=== PATIENT | male | born 1945 | race Caucasian/White ===

== ENCOUNTER → 2016-07-02 | Day surgery (SDC) | payer MEDICARE ==
[~2016-07-02] VITALS: Ht 182.9 cm; Wt 90.7 kg
[~2016-07-02] MED LIST: ACET325T9 PO; ALBUTEROL SULFATE 2.5 MG/3 ML NEBU. NEB ONE; ALPR0.254 PO; AMLO10TA2 PO; BUPIVAC MPF-EPI 0.5%-1:200000 30 ML VIAL. ONE; CARV25TA2 PO; CEFAZOLIN 2GM PREMIX 50 ML IV PRN; DEXAMETHASONE SOD PHOS 20 MG/5 ML VIAL. ONE; DOCU100C PO; EPHEDRINE PF IN SALINE 50 MG/5 ML DISP.SYRIN. IV ONE; FENTANYL PF 100 MCG/2 ML VIAL. IV PRN; FENTANYL PF 100 MCG/2 ML VIAL. ONE; GLUCAGON,HUMAN RECOMBINANT 1 MG/ML VIAL. ONE; GLYCOPYRROLATE 1 MG/5 ML VIAL. ONE; HYDROMORPHONE 2 MG/ML VIAL. IV PRN; IOHEXOL 300 MG/ML 50 ML VIAL. ONE; IRBE300T3 PO; IV RINGERS,LACTATED 1000ML 1,000 ML IV SCH; LIDOCAINE 1% 1 ML SYRINGE. ID PRN; LIDOCAINE 2% 100 MG/5 ML DISP.SYRIN. ONE; MORPHINE SULFATE 2 MG/ML DISP.SYRIN. IV PRN; NEOSTIGMINE METHYLSULFATE 5 MG/5 ML SYRINGE. ONE; ONDA4TAB10 SL; ONDANSETRON PF 4 MG/2 ML VIAL. IV PRN; ONDANSETRON PF 4 MG/2 ML VIAL. ONE; OXYC-323 PO; OXYCODONE/APAP 5/325 TABLET. PO ONE; PANT40TA5 PO; PHENYLEPHRINE in 0.9% NACL PF 1 MG/10 ML DISP.SYRIN. IV ONE; PROCHLORPERAZINE 10 MG/2 ML VIAL. IV PRN; PROPOFOL 20 ML IV ONE; RANI150T6 PO; ROCURONIUM 50 MG/5 ML VIAL. ONE; SEVOFLURANE 61 TO 120 MINUTES. IH ONE; SURGICEL HEMOSTAT 4X8 EACH. ONE; TRAM50TA PO
[2016-07-02 06:47] LABS: BASO % 1 % (0-3); EOS % 2 % (0-3); HEMATOCRIT 40.4 % (39.0-53.0); HEMOGLOBIN 13.2 g/dL (13.0-17.5); LYMPH # 4.1 x10^3/uL (1.0-4.8); LYMPH % 54 % (24-48); MEAN CORPUSCULAR HEMOGLOBIN 30 pg (25-35); MEAN CORPUSCULAR HGB CONC 33 g/dL (31-37); MEAN CORPUSCULAR VOLUME 92 fL (79-100); MONO % 5 % (0-9); NEUT % 38 % (31-73); PLATELET COUNT 152 x10^3/uL (140-400); RED BLOOD COUNT 4.41 x10^6/uL (4.30-5.70); RED CELL DISTRIBUTION WIDTH 15.2 % (11.5-14.5); WHITE BLOOD COUNT 7.6 x10^3/uL (4.0-11.0)
[2016-07-02 07:00] LABS: CALCIUM 8.4 mg/dL (8.5-10.1); CREATININE 1.1 mg/dL (0.7-1.3); GFR 66.2; POTASSIUM 3.9 mmol/L (3.5-5.1)
[2016-07-02 07:04] LABS: ALBUMIN 3.5 g/dL (3.4-5.0); TOTAL BILIRUBIN 0.6 mg/dL (0.2-1.0)
--- NOTE | 2016-07-02 08:35 | RAD ---
EXAM: Intraoperative cholangiogram. HISTORY: Intraoperative cholangiogram. COMPARISON: None. FINDINGS: 3 fluoroscopic images are obtained intraoperatively during injection of the cystic duct remnant after cholecystectomy. There are no filling defects to suggest retained stones. The common duct is not dilated. Fluoroscopy time 13 seconds. IMPRESSION: No evidence of retained stones.
[2016-07-02] MEDS: FENTANYL PF 100 MCG/2 ML VIAL. IV PRN ×4 (09:00→09:40)
--- NOTE | 2016-07-02 09:03 | PDOC ---
BRIEF OPERATIVE NOTE Date: Jul 02, 2016 Pre-Op Diagnosis biliary dyskinesia Post-Op Diagnosis same Procedure Performed l/s cholecystectomy with cholangiograms Surgeon Gabriel Program Services Assistant Jud BOWDEN Anesthesia Type: General Blood Loss 5cc IV Fluid 1000cc Specimens Obtained GB Findings supple GB, some tiny stones/debris in the cystic duct, normal grams Complications none Additional Remarks Wk # [id number] PAVEL LARSON MD Jul 02, 2016 09:03
--- NOTE | 2016-07-02 09:04 | DISCH ---
DISCHARGE INSTRUCTIONS Condition on Discharge Condition on Discharge: Stable Activity After Discharge Activity Instructions for Disc: Activity as tolerated, Avoid exertion Driving Instructions after Dis: Do not drive (3-4 days) Diet after Discharge Diet after Discharge: Regular Wound Incision Care Wound/Incision Care: Ice to area for comfort Other wound/incision instructi: may shower Saturday Follow-Up Follow up with: Gabriel in office PAVEL LARSON MD Jul 02, 2016 09:04
[2016-07-02 12:17] VITALS: BP 126/61
--- NOTE | 2016-07-02 13:35 | OP ---
DATE OF SURGERY: 07/02/2016 PREOPERATIVE DIAGNOSIS: Biliary dyskinesia. POSTOPERATIVE DIAGNOSIS: Biliary dyskinesia. PROCEDURE: Laparoscopic cholecystectomy with cholangiogram. SURGEON: Jacob Larson MD ANESTHESIA: General. SEISMIC ENGINEER: KAL Watson BLOOD LOSS: 5 mL. IV FLUIDS: 1000 mL. INDICATIONS: The patient is a 70-year-old with postprandial pain and nausea. He is brought for cholecystectomy. OPERATIVE FINDINGS: The liver was smooth and sharp. The gallbladder was supple. When we opened the cystic duct for cholangiograms, two small sand-like stones were removed. Cholangiograms were normal. Visual inspection of the remainder of the abdomen failed to reveal obvious abnormalities. DESCRIPTION OF PROCEDURE: The patient was brought to the operating suite, given a general endotracheal anesthetic, and the abdomen was prepped and draped in the usual sterile fashion. A supraumbilical incision was infiltrated with local anesthetic, sharply incised, and a 5 mm Visiport was used to gain access into the abdominal cavity, taking care to avoid injury to abdominal contents. Pneumoperitoneum was established. Camera was inserted and inspection was carried out with results as noted above. With the table in reverse Trendelenburg rolled to the left, the epigastric and midclavicular ports were placed under direct vision. The lateral port location was used for an "alligator" grasper placed under direct vision. The gallbladder was retracted superolaterally and omental adhesions were taken down carefully with blunt and cautery dissection, taking care to avoid injury to the adjacent bowel. The cystic duct and cystic artery were exposed. The cystic duct was clipped on the gallbladder side. When we opened the duct for cholangiograms, two small stones were freed from the duct. Cholangiograms were made. These were normal. In light of this, the catheter was removed. The cystic duct was clipped and divided, taking care to avoid injury or compromise of the common duct. An anterior and posterior branch of the cystic artery were isolated, clipped, and divided, and the gallbladder was freed from the bed with cautery dissection and placed in an EndoCatch bag. Good hemostasis was present with the intra-abdominal pressure at 6 cm of water. The gallbladder was delivered through the epigastric incision. Epigastric incision was closed with interrupted 0 Vicryl suture. Again, at 6 cm of water, no bleeding from the epigastric closure or from the midclavicular port site after its removal or from the "alligator" grasper site after its removal. Abdomen was decompressed. Camera was slowly removed. No bleeding was seen. Skin incisions were closed with subcuticular 4-0 Monocryl. Steri-Strips and sterile dressings were applied. The patient was awakened from his anesthetic and taken to the recovery room in satisfactory condition. JACOB LARSON MD DR: GILBERT/scot JOB#: [id number] / [id number] abram Asher Dr.
--- NOTE | 2016-07-03 15:36 | PATHOLOGY ---
PATHOLOGY REPORT * * * * * * * * FINAL DIAGNOSIS: Gallbladder, laparoscopic cholecystectomy: - Cholesterolosis. - Chronic cholecystitis. COMMENT: There are no calculi identified within the gallbladder lumen or specimen container. There is no evidence of malignancy. (JPM:; d/t: 07/03/16) REPORT ELECTRONICALLY SIGNED BY: Iron Mancera M.D. DATE/TIME: 07/03/2016 15:36 * * * * * * * * GROSS PATHOLOGY: Received in formalin labeled "Chandrakant Vivar - gallbladder and its contents," is a 7.3 x 3.4 x 1.8 cm, disrupted gallbladder with white-green and wrinkled serosal surfaces. Opening the gallbladder reveals dark green and velvety mucosa with diffuse yellow streaking and an average wall thickness of 0.2 cm. Calculi are not present and no masses are noted grossly. Workers' Compensation Magistrate sections from the body and fundus are submitted along with the proximal margin in cassette A1. (TTL; 07/02/2016) INITIAL CPT CODE(S): A; 63080 Professional services performed [place] [facility] [place] [address] Technical services performed by [facility] at [address] [place] [address]. SPECIMEN(S) RECEIVED: A.Gallbladder and its contents CLINICAL HISTORY: Biliary dyskinesia PATIENT: CHANDRAKANT VIVAR /AGE: 912/28/1945 (Age: 70) PATIENT #: [id number] ALT CASE #: SPECIMEN COLLECTION DATE: 07/02/2016 SPECIMEN RECEIVED DATE: 07/02/2016 [facility] - [address] [place] [address] - PHONE: [phone] * * * END OF REPORT * * *
== END | disposition home or self-care (01) ==
LOC: SURG 06:00
PROVIDERS: ATTEND Surgery
DX: K82.8 Other specified diseases of gallbladder (principal); K82.4 Cholesterolosis of gallbladder; K81.1 Chronic cholecystitis; I10 Essential (primary) hypertension; K21.9 Gastro-esophageal reflux disease without esophagitis; F41.9 Anxiety disorder, unspecified; Z87.39 Personal history of other diseases of the musculoskeletal system and connective tissue; Z87.891 Personal history of nicotine dependence
CPT/HCPCS: 36415; 47563; 74300; 80048; 82040; 82247; 85027; C1769; C1782; J0690; J1100; J2370; J2405; J2704; J2710; J3010; J3490; J7030; J7120; Q9967; J0780; J1610

== ENCOUNTER 2016-08-11 12:24 | Emergency (ER) | payer MEDICARE ==
[~2016-08-11] VITALS: Ht 182.9 cm; Wt 88.0 kg
[~2016-08-11 12:24] MED LIST changes: -ALBUTEROL SULFATE 2.5 MG/3 ML NEBU. NEB ONE; -BUPIVAC MPF-EPI 0.5%-1:200000 30 ML VIAL. ONE; -CEFAZOLIN 2GM PREMIX 50 ML IV PRN; -DEXAMETHASONE SOD PHOS 20 MG/5 ML VIAL. ONE; -EPHEDRINE PF IN SALINE 50 MG/5 ML DISP.SYRIN. IV ONE; -FENTANYL PF 100 MCG/2 ML VIAL. IV PRN; -FENTANYL PF 100 MCG/2 ML VIAL. ONE; -GLUCAGON,HUMAN RECOMBINANT 1 MG/ML VIAL. ONE; -GLYCOPYRROLATE 1 MG/5 ML VIAL. ONE; -HYDROMORPHONE 2 MG/ML VIAL. IV PRN; -IOHEXOL 300 MG/ML 50 ML VIAL. ONE; -IV RINGERS,LACTATED 1000ML 1,000 ML IV SCH; -LIDOCAINE 1% 1 ML SYRINGE. ID PRN; -LIDOCAINE 2% 100 MG/5 ML DISP.SYRIN. ONE; -MORPHINE SULFATE 2 MG/ML DISP.SYRIN. IV PRN; -NEOSTIGMINE METHYLSULFATE 5 MG/5 ML SYRINGE. ONE; -ONDANSETRON PF 4 MG/2 ML VIAL. IV PRN; -ONDANSETRON PF 4 MG/2 ML VIAL. ONE; -OXYCODONE/APAP 5/325 TABLET. PO ONE; -PHENYLEPHRINE in 0.9% NACL PF 1 MG/10 ML DISP.SYRIN. IV ONE; -PROCHLORPERAZINE 10 MG/2 ML VIAL. IV PRN; -PROPOFOL 20 ML IV ONE; -ROCURONIUM 50 MG/5 ML VIAL. ONE; -SEVOFLURANE 61 TO 120 MINUTES. IH ONE; -SURGICEL HEMOSTAT 4X8 EACH. ONE
[2016-08-11 12:51] VITALS: BP 130/71
--- NOTE | 2016-08-11 15:51 | PHYS DOC ---
Past Medical History Past Medical History: Anxiety, Hypertension Past Surgical History: Cholecystectomy Alcohol Use: Rarely Drug Use: None Adult General Chief Complaint Chief Complaint: ANXIETY/PANIC ATTACK HPI HPI Patient is a 70 year old female who presents with anxiety. Patient reports that since March he has had issues with anxiety and feeling nervous. In May he was started on small dose of PRN xanax. He has been taking this occasionally as needed. It works relatively well to control his symptoms, however when he stops taking it for several days he starts having suicidal thoughts. He had stopped taking it for a few days, but restarted taking it on . He denies any SI at this time. He also denies SI, hallucinations, alcohol or illicit drug use. No other acute complaints. Review of Systems Review of Systems Constitutional: Denies fever or chills Respiratory: Denies cough or shortness of breath Cardiovascular: Denies chest pain GI: Denies abdominal pain, nausea, vomiting, or diarrhea Musculoskeletal: Denies acute back pain or joint pain Neurologic: Denies headache, focal weakness or sensory changes Psychiatric: Suicidal ideation after cessation of xanax (no SI at this time), anxiety Allergies Allergies Allergies Coded Allergies Type Severity Reaction Last Updated Verified No Known Drug Allergies 07/02/16 No Physical Exam Physical Exam Constitutional: Well developed, well nourished, no acute distress, non-toxic appearance Cardiovascular: Heart rate normal, regular rhythm, no murmur Lungs & Thorax: Bilateral breath sounds clear to auscultation Abdomen: Bowel sounds normal, soft, non-distended, no TTP Skin: Warm, dry, no erythema, no rash Neurologic: Alert and oriented X 3, no gross deficits noted Psychologic: Affect normal, judgement normal, mood normal Current Patient Data Vital Signs Vital Signs Date Time Temp Pulse Resp B/P Pulse Ox O2 Delivery O2 Flow Rate FiO2 08/11/16 12:51 97.5 77 20 130/71 97 Room Air 97.5 EKG EKG [] Radiology/Procedures Radiology/Procedures [] Course & Med Decision Making Course & Med Decision Making Pertinent Labs and Imaging studies reviewed. (See chart for details) Patient is 70 year old male who presents with SI when he ceases taking xanax PRN for anxiety. Has been taking it for the last few days, and denies any SI at this time. PAT team consulted to assist with evaluation. Patient was seen by David. As patient not suicidal at this time, ok to send patient home. We have arranged follow up with Saleem Macdonald for further evaluation and possible medication change. Patient agreeable with plan. He will continue to take the xanax PRN while he awaits this appointment. Given return precautions should he develop any further SI. Patient discharged home. Dragon Disclaimer Dragon Disclaimer This electronic medical record was generated, in whole or in part, using a voice recognition dictation system. Departure Departure Impression: Primary Impression: Anxiety Disposition: HOME, SELF-CARE Condition: STABLE Referrals: SADIE GARCIA (PCP) Patient Instructions: Anxiety and Panic Attacks Additional Instructions: Thank you for allowing us to provide care today in the Emergency Department. Continue to take the anxiety medication that you already have as needed. Follow up with Saleem Macdonald, as discussed with the psychiatry cafe team member. The phone number is . It is located in [place], [place]. Return promptly to the Emergency Department if you develop any new or concerning symptoms. BAILEY EDWARDS MD Aug 11, 2016 15:51
== END 2016-08-11 16:20 | disposition home or self-care (01) ==
LOC: ER 12:24
DX: F41.9 Anxiety disorder, unspecified (principal); R45.0 Nervousness; I10 Essential (primary) hypertension; R45.851 Suicidal ideations
CPT/HCPCS: 99284